=== PATIENT | female | born 1965 | race Caucasian/White ===

== ENCOUNTER 2017-04-19 18:12 | Emergency (ER) | payer BC ==
[~2017-04-19] VITALS: Ht 170.2 cm; Wt 68.0 kg
[~2017-04-19 18:12] MED LIST: ACIDOPHILUS1 EAC2; AMOXICILLIN500 MG PO; BENZONATATE100 MG PO; CALCIUM + D3 E1 EACH; CLONAZEPAM1 MG PO; CYCLOBENZAPRINE10 MG PO; CYMBALTA60 MG PO; DEPLIN-ALGAL O1 EAC1 PO; DEXAMETHASONE4 MG PO; DIVALPROEX SOD500 MG PO; FIORINAL 50-321 EACH PO; FLAXSEED OIL1000 MG; GABAPENTIN100 MG PO; GABAPENTIN300 MG PO; GABAPENTIN400 MG PO; GEODON60 MG PO; GEODON80 MG NG; HYDROXYZINE HCL25 MG PO; LASIX20 MG PO; LEVOTHYROXINE125 MCG PO; LEVOTHYROXINE25 MCG; MAGNESIUM400 MG PO; MELOXICAM15 MG; METOCLOPRAMIDE10 MG PO; MONTELUKAST SOD10 MG PO; NAPROXEN500 MG PO; OMEPRAZOLE20 MG PO; PROMETHAZINE HC25 M1 PO; REMERON30 MG PO; TIZANIDINE HCL4 M1 PO; TOPAMAX50 MG PO; VITAMIN D5000 UNIT PO; ZOFRAN ODT4 MG PO; ZOFRAN8 MG PO; [UNRECOGNIZED DRUG - OTHER]; [UNRECOGNIZED DRUG - OTHER]
[2017-04-19] MEDS ORDERED: TRAMADOL HCL50 MG PO (19:21)
[2017-04-19] MEDS ORDERED: PENICILLIN V P500 MG PO (19:21)
== END 2017-04-19 19:34 | disposition home or self-care (01) ==
LOC: ED 18:12
DX: K08.89 Other specified disorders of teeth and supporting structures (principal); E03.9 Hypothyroidism, unspecified; F17.200 Nicotine dependence, unspecified, uncomplicated; Z90.710 Acquired absence of both cervix and uterus; Z90.49 Acquired absence of other specified parts of digestive tract; Z88.2 Allergy status to sulfonamides; Z88.5 Allergy status to narcotic agent; Z88.8 Allergy status to other drugs, medicaments and biological substances; Z79.899 Other long term (current) drug therapy; Z85.850 Personal history of malignant neoplasm of thyroid
CPT/HCPCS: 99283

== ENCOUNTER 2017-09-02 07:55 | Day surgery (SDC) | payer BC ==
[~2017-09-02] VITALS: Ht 170.2 cm; Wt 72.6 kg
[~2017-09-02 07:55] MED LIST changes: +PENICILLIN V P500 MG PO; +TRAMADOL HCL50 MG PO
[2017-09-02] MEDS ORDERED: OMEGA 3-6-9 CO400 MG PO (08:18)
[2017-09-02] MEDS ORDERED: CALCIUM600 MG PO (08:18)
[2017-09-02] MEDS ORDERED: PROMETHAZINE HC25 MG PR (08:19)
--- NOTE | 2017-09-02 11:38 | NUR ---
09/02/17 1138 Trinity [place] 1125 - PT ARRIVED TO PACU. ATTEMPTING TO PULL OUT NASAL PACKING. NOSE PROTECTED BY RNS. BRIDGE TOLL COLLECTOR GAVE 2 OF VERSED. SUCTION PROVDIED TO REMOVE MUCOUS/BLOOD FROM MOUTH.
--- NOTE | 2017-09-02 13:57 | NUR ---
1235: PATIENT BACK IN DAY SURGERY ROOM FROM PACU. C/O PAIN 8/10 IN NOSE/SINUS AREA. VS CHECKED. GIVEN WATER AND JELLO. IV SITE WNL. SCDs ON. MUSTACHE DRESSING WITH SMALL AMOUNT OF RED DRAINAGE. 1250: MUSTACHE DRESSING CHANGED. TOLERATED JELLO. MEDICATED FOR PAIN WITH 2 TABS OF NORCO. CALL LIGHT WITHIN REACH. MOTHER AT BEDSIDE.
--- NOTE | 2017-09-02 14:03 | NUR ---
1240: VS CHECKED. PATIENT'S PAIN IMPROVED. RATES PAIN 5/10. SLEEPING INTERMITTENTLY. MUSTACHE DRESSING CHANGED. CALL LIGHT WITHIN REACH. MOTHER AND FATHER AT BEDSIDE.
[2017-09-02] MEDS ORDERED: NORCO 5-325 TA1 EACH PO (14:11)
--- NOTE | 2017-09-02 14:41 | NUR ---
PATIENT SLEEPING, AWAKENED FOR VS CHECK. STATES "FEELING BETTER". RATES PAIN /10. CHECKED VS. CHANGED MUSTACHE DRESSING. PATIENT NOT READY TO GET OOB AT THIS TIME. REQUESTS MORE TIME TO REST. IV SITE WNL. PARENTS AT BEDSIDE. CALL LIGHT WITHIN REACH.
--- NOTE | 2017-09-02 15:44 | NUR ---
1515: PATIENT ASSISTED OOB AND TO BATHROOM. GAIT STEADY. VOID WITHOUT DIFFICULTY. GAIT STEADY BACK TO ROOM. PATIENT GETTING DRESSED. 1530: PATIENT DRESSED AND STATES READY TO GO HOME. MUSTACHE DRESSING CHANGED. IV DC'D WNL. TIP INTACT. DRESSING APPLIED. DISCHARGE INSTRUCTIONS GIVEN TO PATIENT AND MOTHER. 1540: PATIENT DISCHARGED TO HOME WITH PARENTS VIA WHEELCHAIR.
--- NOTE | 2017-11-04 14:15 | OR ---
[facility] [address] [place], [place] [address] Signed DATE OF OPERATION: SURGEON: Karan Stevenson MD PREOPERATIVE DIAGNOSES: 1. Posterior neck mass. 2. Septal deformity. 3. Chronic bilateral sinusitis. POSTOPERATIVE DIAGNOSES: 1. Posterior neck mass. 2. Septal deformity. 3. Chronic bilateral sinusitis. PROCEDURES: 1. Excision of posterior neck mass. 2. Septoplasty. 3. Bilateral intranasal ethmoidectomy. ANESTHESIA: General orotracheal, COFFEE URN ATTENDANT, Rey. PREOP HISTORY: Preet is a 52-year-old lady with chronic sinus infections, abnormalities on CAT scan, septal deformity, also a posterior neck mass, soft, consistent with a lipoma. She was taken to the operating room for the above-mentioned procedures. OPERATIVE PROCEDURE AND FINDINGS: After informed consent, the patient was taken to the operating room and placed in supine position where general orotracheal anesthesia was induced. The patient and procedure were verified. The patient received preoperative intranasal oxymetazoline and intravenous Ancef. The patient was rolled to the right posterior neck, shaved exposing the mass which was just to the left of midline just beneath the occiput. The area was sterilely prepped and draped. Lidocaine was injected in a superior inferior direction overlying the mass. This was a soft subcutaneous mass measuring about 3 cm, very consistent with a lipoma. After the lidocaine and with epi injection, an incision was made through skin, subcutaneous tissue, combination of sharp and blunt dissection. I then identified a lipoma about 3-4 cm. This was completely excised down to muscular fascia. The specimen was sent to pathology. The wound was copiously lavaged. Hemostasis was verified. The wound was then closed over a quarter-inch [place] drain with 4-0 interrupted Vicryl subcu and meryl in the skin. Dressing was applied. Electronically Signed By: KARAN STEVENOSN MD 11/04/17 7447 PATIENT NAME: PREET KNIGHT OPERATIVE REPORT DATE OF : 63 REPORT #: [id number] PHYSICIAN: KARAN STEVENSON MD PCP: ZACHARIAH WILSON MD REPORT IS CONFIDENTIAL AND NOT TO BE RELEASED WITHOUT AUTHORIZATION [facility] [address] [place], [place] [address] Signed The patient was repositioned and placed in the supine position. Head elevated. The preop CT was viewed throughout. Intranasal exam with the headlight speculum showed a significant septal deformity, nearly completely obstructive on the left side. 1% lidocaine with epi was injected in bilateral septal mucosa submucoperichondrially. A left hemitransfixion incision was then made and a submucoperichondrial flap elevated on the left side. An incision was made through septal cartilage a centimeter posterior to the mucosal incision and a submucoperichondrial flap elevated on the right. All deviated septal bone and cartilage were then removed with the Blayne. The septum was medialized and airway improved in this manner. The incision was closed with 4-0 interrupted chromic. The ethmoidectomies were then performed directed by CT, viewed throughout. The left side was approached first. The middle turbinate was medialized. Ethmoid bulla taken down with the Blayne. Anterior and posterior ethmoid air cells opened. The abnormal air cells on the CT were posterior ethmoids, very high up near the ethmoid plate. There was a copious amount of inspissated mucus in the sinuses which were opened completely. The middle meatal antrostomy was made with a curve ring curette. The same procedure was performed on the right side. Same findings. Minimal bleeding. The packing was then placed. A Bingham coated with Neosporin in the middle meatal area, both sides, and a trimmed Merocel pack coated with Neosporin in the nasal cavity. The strings were tied anteriorly over a pad. The pharynx was suctioned clear of blood and secretions. The patient was then awakened, extubated, transported to the recovery room in good condition. No complications. BLOOD LOSS: Minimal. SPECIMENS: 1. Left posterior neck mass to pathology. 2. Left sinus contents to pathology. 3. Right sinus contents to pathology. PACKING: Two pieces of Merocel each nostril. No complications. DRAIN: [place] in the posterior neck. Electronically Signed By: KARAN STEVENSON MD 11/04/17 1415 PATIENT NAME: PREET KNIGHT OPERATIVE REPORT DATE OF : 63 REPORT #: [id number] PHYSICIAN: KARAN STEVENSON MD PCP: ZACHARIAH WILSON MD REPORT IS CONFIDENTIAL AND NOT TO BE RELEASED WITHOUT AUTHORIZATION [facility] [address] [place] [id number] Signed Karan Stevenson MD /MODL /[id number] Electronically Signed By: KARAN STEVENSON MD 11/04/17 1415 PATIENT NAME: PREET KNIGHT OPERATIVE REPORT DATE OF : 63 REPORT #: [id number] PHYSICIAN: KARAN STEVENSON MD PCP: ZACHARIAH WILSON MD REPORT IS CONFIDENTIAL AND NOT TO BE RELEASED WITHOUT AUTHORIZATION
== END 2017-09-02 15:40 | disposition home or self-care (01) ==
LOC: DS 07:55 → OPS 07:55 → DS 09:45 → OPS 15:40
PROVIDERS: Otolaryngology
PROC: 09BV4ZZ Excision of Left Ethmoid Sinus, Percutaneous Endoscopic Approach (ICD-10-PCS; 2017-09-02)
PROC: 09BU4ZZ Excision of Right Ethmoid Sinus, Percutaneous Endoscopic Approach (ICD-10-PCS; 2017-09-02)
PROC: 09SM0ZZ Reposition Nasal Septum, Open Approach (ICD-10-PCS; principal; 2017-09-02 09:45)
PROC: 0JB50ZZ Excision of Left Neck Subcutaneous Tissue and Fascia, Open Approach (ICD-10-PCS; 2017-09-02 09:45)
DX: D17.0 Benign lipomatous neoplasm of skin and subcutaneous tissue of head, face and neck (principal); J34.2 Deviated nasal septum; J32.2 Chronic ethmoidal sinusitis; F32.9 Major depressive disorder, single episode, unspecified; G43.909 Migraine, unspecified, not intractable, without status migrainosus; M81.0 Age-related osteoporosis without current pathological fracture; J30.2 Other seasonal allergic rhinitis; Z88.2 Allergy status to sulfonamides; Z85.850 Personal history of malignant neoplasm of thyroid; Z88.5 Allergy status to narcotic agent; Z90.49 Acquired absence of other specified parts of digestive tract; Z79.899 Other long term (current) drug therapy; Z98.890 Other specified postprocedural states
CPT/HCPCS: 00300; J0330; J0690; J2250; J2405; J2704; J2765; J3010; J7120

== ENCOUNTER 2020-12-12 06:35 | Day surgery (SDC) | payer BC ==
[~2020-12-12] VITALS: Ht 172.7 cm; Wt 64.5 kg
[~2020-12-12 06:35] MED LIST changes: +CALCIUM600 MG PO; +LIOTHYRONINE SO5 MCG PO; +NORCO 5-325 TA1 EACH PO; +OMEGA 3-6-9 CO400 MG PO; +PEPCID40 MG PO; +PROMETHAZINE HC25 MG PR; +ZITHROMAX250 MG PO
[2020-12-12] MEDS ORDERED: CYTOMEL25 MCG PO (06:52)
--- NOTE | 2020-12-12 08:23 | NUR ---
12/12/20 0823 Mary Grace Pickard 0820 PATIENT ARRIVES TO PACU SLEEPING, SNORING AT TIMES. AWAKENS WITH REPEATED VERBAL STIMULI, BACK TO SLEEP WHEN NOT STIMULATED. RESP EVEN AND UNLABORED, OXYGEN TURNED OFF ON ARRIVAL TO PACU, 100% ON 2 LITERS VIA NC.
--- NOTE | 2020-12-12 10:56 | OR ---
[facility] [address] [place], [place] [address] Signed DATE OF OPERATION: 12/12/2020 SURGEON: James Redd MD PREOPERATIVE DIAGNOSES: 1. Screening. 2. Chronic diarrhea and constipation. POSTOPERATIVE DIAGNOSIS: Polyp versus suction at 75 cm (mid to distal transverse colon). PROCEDURE: Colonoscopy with hot biopsy at 75 cm and random cold biopsies in right and left colon. ESTIMATED BLOOD LOSS: None. INDICATIONS: Preet is a 55-year-old female, asked to see me mainly for her initial screening colonoscopy. She really has no lower GI complaints. Although, she told the nurses today, she has had chronic lifelong alternating constipation and diarrhea. There is no family history of colon cancer or polyps. She went through an upper endoscopy in 2019 with what sounds like propofol infusion based on her comments. That was unremarkable. She continues to have chronic nausea associated with her anxiety. She generally carries a vomit bag with her. In the office, I gave her a pamphlet on upper endoscopy. We discussed the nature of the test. She understands there is risk including, but not limited to gas bloating, crampy abdominal pain, bleeding, perforation requiring surgery, and missed diagnosis. She also understands the need for IV conscious sedation. She understands that we generally start with Versed and fentanyl. If that would not be enough, she would need monitored anesthesia care with propofol. She had expressed understanding and wished to proceed. PROCEDURE NOTE: Preet was taken into our endoscopy suite and placed in the left lateral decubitus position. She told us about her significant nausea and vomiting. Consequently, we gave her 4 mg IV Zofran and 12.5 mg of IV Phenergan prior to starting. After that, she was given a total of 9 mg of Versed and 150 mcg of fentanyl. There were a couple times during the procedure where she was awake as we advanced the scope. We took a break and gave her more Versed and fentanyl and we used the abdominal compression in order to advance the scope. Fortunately, she is relatively easy to advance the scope. Her prep Electronically Signed By: JAMES REDD MD 12/12/20 1056 PATIENT NAME: PREET KNIGHT OPERATIVE REPORT DATE OF : 63 REPORT #: [id number] PHYSICIAN: JAMES REDD MD PCP: ZACHARIAH WILSON MD REPORT IS CONFIDENTIAL AND NOT TO BE RELEASED WITHOUT AUTHORIZATION [facility] [address] [place], [place] [address] Signed was quite excellent. It did take us a few minutes to get around hepatic flexure and into the cecum itself. She had bilious fluid in the cecum. It took a few minutes to irrigate and suction that out completely. After that, we could easily see her appendiceal orifice and the ileocecal valve. The scope was then slowly withdrawn. We had taken pictures throughout for photodocumentation. We took a random biopsy in the right and left colon because of the history of diarrhea. We have what looks like a suction bite back at 75 cm somewhere in the mid to distal transverse colon. We went ahead and removed with hot biopsy forceps. The rectum itself was unremarkable. No evidence of any diverticulosis. Upon retroflexion of scope, there was no additional pathology noted above the anal canal. After this, the gas was suctioned out and colonoscope removed. Preet tolerated the procedure quite well. RECOMMENDATIONS: I will see Preet back in my office in 7 to 14 days to review her results. James Redd MD ALB/MODL /[id number] cc: MD Zachariah Nolen MD Copies: JAMES REDD MD, RUSSELL BARR MD ~ Electronically Signed By: JAMES REDD MD 12/12/20 1056 PATIENT NAME: PREET KNIGHT OPERATIVE REPORT DATE OF : 63 REPORT #: [id number] PHYSICIAN: JAMES REDD MD PCP: ZACHARIAH WILSON MD REPORT IS CONFIDENTIAL AND NOT TO BE RELEASED WITHOUT AUTHORIZATION
--- NOTE | 2020-12-14 14:46 | PATH ---
[facility] [address] [place], [place] [address] Signed SPECIMEN(S): A RANDOM COLON BIOPSY SPECIMEN(S): B DESCENDING/LEFT COLON POLYP AT 75 CM SPECIMEN SOURCE: A. RANDOM COLON BIOPSY B. DESCENDING/LEFT COLON POLYP AT 75 CM CLINICAL HISTORY: Screening colonoscopy. Diarrhea, constipation. Postop: Polyp vs. suction bite. MICROSCOPIC DESCRIPTION: Histologic sections of all submitted blocks are examined by light microscopy. These findings, together with the gross examination, support the pathologic diagnosis. FINAL PATHOLOGIC DIAGNOSIS: A. Colon, random, biopsy: - Colonic mucosa with no histopathologic abnormality. - Negative for active, chronic, or microscopic colitis. - Negative for dysplasia or malignancy. B. Colon, descending, polyp at 75 cm, polypectomy: - Hyperplastic polyp. - Negative for dysplasia or malignancy. NAL:cml:C2NR GROSS DESCRIPTION: Two specimens are received in two containers, labeled "LB." A. The specimen, labeled "LB, random colon biopsy," is received in formalin and consists of two pineda soft tissue fragments that measure 0.2-0.3 cm in greatest dimension. The specimen is entirely submitted in cassette (A1). B. The specimen, labeled "LB, descending colon polyp at 75 cm," is received in formalin and consists of one pineda soft tissue fragment that measures 0.1 cm in greatest dimension. The specimen is entirely submitted in cassette (B1). JS (under the direct supervision of a pathologist) The Gross Description was prepared using a voice recognition system. The report was reviewed for accuracy; however, sound-alike word errors, addition and/or deletions may occur. If there is any question about this report, please contact Client Services. PATIENT NAME: EVANGELINA KNIGHT PATHOLOGY DATE OF : 63 REPORT #: [id number] PHYSICIAN: HAYLEY PATHOLOGY PCP: ZACHARIAH WILSON MD REPORT IS CONFIDENTIAL AND NOT TO BE RELEASED WITHOUT AUTHORIZATION [facility] [address] [place] [address] Signed PERFORMING LABORATORY: The technical component was performed by [employer] [address] (Meter Inspector: Keeley Lawrence MD; CLIA# [id number]). Professional interpretation was performed by [facility], [address] [address] (CLIA# [id number]). Diagnostician: Eula Morales MD Pathologist Electronically Signed 12/14/2020 Copies: ~ PATIENT NAME: EVANGELINA KNIGHT PATHOLOGY DATE OF : 63 REPORT #: [id number] PHYSICIAN: HAYLEY PATHOLOGY PCP: ZACHARIAH WILSON MD REPORT IS CONFIDENTIAL AND NOT TO BE RELEASED WITHOUT AUTHORIZATION
== END 2020-12-12 09:15 | disposition home or self-care (01) ==
LOC: DS 06:35 → OPS 06:35 → DS 10:30
PROVIDERS: ATTEND Colon & Rectal Surgery
PROC: 0DBE8ZZ Excision of Large Intestine, Via Natural or Artificial Opening Endoscopic (ICD-10-PCS; 2020-12-12)
PROC: 0DBL8ZZ Excision of Transverse Colon, Via Natural or Artificial Opening Endoscopic (ICD-10-PCS; principal; 2020-12-12 07:30)
DX: Z12.11 Encounter for screening for malignant neoplasm of colon (principal); K52.9 Noninfective gastroenteritis and colitis, unspecified; K59.00 Constipation, unspecified; K63.5 Polyp of colon; F41.0 Panic disorder [episodic paroxysmal anxiety]; E89.0 Postprocedural hypothyroidism; E55.9 Vitamin D deficiency, unspecified; F17.200 Nicotine dependence, unspecified, uncomplicated; Z85.850 Personal history of malignant neoplasm of thyroid; Z90.49 Acquired absence of other specified parts of digestive tract; Z88.1 Allergy status to other antibiotic agents; Z88.5 Allergy status to narcotic agent; Z88.2 Allergy status to sulfonamides; Z88.8 Allergy status to other drugs, medicaments and biological substances; Z91.048 Other nonmedicinal substance allergy status
CPT/HCPCS: 99153; G0500; J2250; J2405; J2550; J3010

== ENCOUNTER 2025-03-23 10:02 | Emergency (ER) | payer OTHER ==
[~2025-03-23] VITALS: Ht 172.7 cm; Wt 80.0 kg
[~2025-03-23 10:02] MED LIST changes: +CYTOMEL25 MCG PO; +VITAMIN D-40010 MCG PO; -VITAMIN D5000 UNIT PO
--- OUTSIDE RECORDS SUMMARY | 2025-03-23 10:08 | XMS ---
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 E.DFlaca VISIT COUNT (12 MO.) 1 LAZ[facility]US [facility] TOTAL 1 NOTE: Visits indicate total known visits. ED/UCC VISIT TRACKING (12 MO.) 03/23/2025 10:02 [facility] [place] TYPE: Emergency COMPLAINT: - FALL INPATIENT VISIT TRACKING (12 MO.) No inpatient visits to display in this time frame [email or web address]
[2025-03-23] MEDS ORDERED: HYDROmorphone HCL 1 MG/ML SYR IV SCH (10:15)
[2025-03-23] MEDS ORDERED: HYDROCODON-ACE1 EA10 PO (11:04)
[2025-03-23] MEDS ORDERED: ONDANSETRON ODT4 MG PO (11:04)
[2025-03-23] MEDS ORDERED: CRUTCHES XX (11:06)
[2025-03-23] MEDS ORDERED: HYDROCODONE BIT/ACETAMINOPHEN 5/325 MG 1 TAB HOME.PACK PO PRN (11:45)
[2025-03-23 11:48] VITALS: BP 142/81
[2025-03-24] MEDS ORDERED: PROMETHAZINE HC25 M1 PO (16:04)
[2025-03-24] MEDS ORDERED: PRILOSEC OTC20 MG PO (17:30)
[2025-03-24] MEDS ORDERED: VITAMIN B12500 MCG PO (17:31)
[2025-03-24] MEDS ORDERED: L-METHYLFOLATE7.5 M1 PO (17:31)
== END 2025-03-23 11:49 | disposition home or self-care (01) ==
LOC: ED 10:02
DX: S82.042A Displaced comminuted fracture of left patella, initial encounter for closed fracture (principal); W01.10XA Fall on same level from slipping, tripping and stumbling with subsequent striking against unspecified object, initial encounter; Y92.000 Kitchen of unspecified non-institutional (private) residence as the place of occurrence of the external cause; F17.200 Nicotine dependence, unspecified, uncomplicated
CPT/HCPCS: 73562; 96374; 99283; A9270; J1171

== ENCOUNTER 2025-07-29 14:57 | Emergency (ER) | payer OTHER ==
[~2025-07-29] VITALS: Ht 172.7 cm; Wt 76.9 kg
--- OUTSIDE RECORDS SUMMARY | ~2025-07-29 | XMS | Continuity of Care Document ---
Demographics + + + | Address | [address] | | | [place] [address] | + + + | Preferred Language | Unknown | + + + | Marital Status | | + + + | Oriental Orthodox Affiliation | Unknown | + + + | Race | White | + + + | Ethnic Group | Not or | + + + Author + + + | Author | [facility] | + + + | Organization | [facility] | + + + | Address | [address] | | | [place] [address] | + + + | Phone | | + + + Care Team Providers + + + + | Care Denture Waxer Name | Role | Phone | + + + + Unavailable | Unavailable | + + + + Allergies No information. Encounters No information. Functional Status No information. Immunizations + + + + | date | description | facility | + + + + | (no date) | Influenza, Injectable, | [facility] | | | Quadriv[facility] | [facility] | + + + + Medications + + + + | date | description | facility | + + + + | (no date) | ONDANSETRON HCL | [facility] | | | | [facility] | + + + + | (no date) | DIVALPROEX SODIUM | [facility] | | | | [facility] | + + + + | (no date) | TOPIRAMATE | [facility] | | | | [facility] | + + + + | (no date) | MELOXICAM | [facility] | | | | [facility] | + + + + | (no date) | BENZONATATE | [facility] | | | | [facility] | + + + + | (no date) | CLONAZEPAM | [facility] | | | | [facility] | + + + + | (no date) | DEXAMETHASONE | [facility] | | | | [facility] | + + + + | (no date) | OMEPRAZOLE | [facility] | | | | [facility] | + + + + | (no date) | MONTELUKAST SODIUM | [facility] | | | | [facility] | + + + + | (no date) | FUROSEMIDE | [facility] | | | | [facility] | + + + + | (no date) | MIRTAZAPINE | [facility] | | | | [facility] | + + + + | (no date) | CALCIUM CARBONATE | [facility] | | | | [facility] | + + + + | (no date) | MAGNESIUM OXIDE | [facility] | | | | [facility] | + + + + | (no date) | FLAXSEED | [facility] | | | | [facility] | + + + + | (no date) | ZIPRASIDONE HCL | [facility] | | | | [facility] | + + + + | (no date) | ZIPRASIDONE HCL | [facility] | | | | [facility] | + + + + | (no date) | AMOXICILLIN | [facility] | | | | [facility] | + + + + | (no date) | Cholecalciferol (Vitamin | [facility] | | | D3) | [facility] | + + + + | (no date) | GABAPENTIN | [facility] | | | | [facility] | + + + + | (no date) | GABAPENTIN | [facility] | | | | [facility] | + + + + | (no date) | GABAPENTIN | [facility] | | | | [facility] | + + + + | (no ) | METOCLOPRAMIDE HCL | [facility] | | | | [facility] | + + + + | (no ) | Cyanocobalamin (Vitamin | [facility] | | | B-12) | [facility] | + + + + | (no ) | OMEPRAZOLE MAGNESIUM | [facility] | | | | [facility] | + + + + | (no date) | TIZANIDINE HCL | [facility] | | | | [facility] | + + + + | (no date) | DULOXETINE HCL | [facility] | | | | [facility] | + + + + | (no date) | LACTOBACILLUS ACIDOPHILUS | [facility] | | | | [facility] | + + + + | (no date) | CYCLOBENZAPRINE HCL | [facility] | | | | [facility] | + + + + | (no date) | HYDROCODONE | [facility] | | | BIT/ACETAMINOPHEN | [facility] | + + + + | (no date) | LIOTHYRONINE SODIUM | [facility] | | | | [facility] | + + + + | (no date) | LIOTHYRONINE SODIUM | [facility] | | | | [facility] | + + + + | (no date) | LEVOTHYROXINE SODIUM | [facility] | | | | [facility] | + + + + | (no date) | LEVOTHYROXINE SODIUM | [facility] | | | | [facility] | + + + + | (no date) | PROMETHAZINE HCL | [facility] | | | | [facility] | + + + + | (no date) | PROMETHAZINE HCL | [facility] | | | | [facility] | + + + + | (no date) | hydrOXYzine HCL | [facility] | | | | [facility] | + + + + | (no date) | FEXOFENADINE HCL | [facility] | | | | [facility] | + + + + Problems No information. Procedures No information. Results/Labs No information. Social History +--------+ + + | date | description | facility | +--------+ + + Vital Signs No information."
[~2025-07-29 14:57] MED LIST changes: +ALLEGRA ALLERGY60 MG PO; +ASPIRIN325 MG PO; +CEFUROXIME500 MG PO; +CRUTCHES XX; +DICLOFENAC SODI75 MG PO; +HYDROCODON-ACE1 EA10 PO; +HYDROCODON-ACE1 EA11 PO; +L-METHYLFOLATE7.5 M1 PO; +ONDANSETRON ODT4 MG PO; +PRILOSEC OTC20 MG PO; +SENNA LAX8.6 MG PO; +VITAMIN B12500 MCG PO
--- OUTSIDE RECORDS SUMMARY | 2025-07-29 15:04 | XMS ---
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 [facility]ACHAR[facility] \F\ <UNAVAIL> PHONE: [phone] Delon has no Care Guidelines for this patient. E.Ron VISIT COUNT (12 MO.) 2 LAZARUS Winn TOTAL 2 NOTE: Visits indicate total known visits. ED/UCC VISIT TRACKING (12 MO.) 07/29/2025 14:57 [facility] [place] TYPE: Emergency COMPLAINT: - BLOOD PRESSURE PROBLEM 03/23/2025 10:02 [facility] [place] TYPE: Emergency COMPLAINT: - FALL DIAGNOSES: - Displaced comminuted fracture of left patella, initial encounter for closed fracture - Fall on same level from slipping, tripping and stumbling with subsequent striking against unspecified object, initial encounter - Kitchen of unspecified non-institutional (private) residence as the place of occurrence of the external cause - Nicotine dependence, unspecified, uncomplicated - Pain in left knee INPATIENT VISIT TRACKING (12 MO.) No inpatient visits to display in this time frame [email or web address]
[2025-07-29] MEDS ORDERED: MECLIZINE HCL 25 MG TAB PO ONE (17:15)
[2025-07-29 17:30] LABS: BASOPHILS 0.4 % (0.1-1.2); EOSINOPHILS 1.2 % (0.7-5.8); LYMPHOCYTES 39.5 % (19.3-51.7); MCH 30.2 PG (25.6-32.2); MCHC 32.7 g/dL (32.2-35.5); MCV 92.3 fL (79.4-94.8); MONOCYTES 9.4 % (4.7-12.5); NEUTROPHILS 49.4 % (34.0-71.1); RBC 4.44 M/uL (3.93-5.22)
[2025-07-29 17:51] LABS: AST (SGOT) 19.0 U/L (15-37); GLOMERULAR FILTRATION RATE,EST 75.0 mL/min (>60); PROTEIN, TOTAL 7.5 g/dL (6.4-8.2); UREA NITROGEN 13.0 mg/dL (7-18)
[2025-07-29 18:01] LABS: ALT (SGPT) 17.0 U/L (14-59)
[2025-07-29] MEDS ORDERED: MECLIZINE HCL25 MG PO (22:23)
[2025-07-29] MEDS ORDERED: ASPIRIN81 MG PO (22:23)
[2025-07-29] MEDS ORDERED: LIPITOR20 MG PO (22:23)
[2025-07-29 22:42] VITALS: BP 129/88
== END 2025-07-29 22:44 | disposition home or self-care (01) ==
LOC: ED 14:57
PROVIDERS: Emergency Medicine
DX: H81.10 Benign paroxysmal vertigo, unspecified ear (principal); E03.9 Hypothyroidism, unspecified; G43.909 Migraine, unspecified, not intractable, without status migrainosus; F17.200 Nicotine dependence, unspecified, uncomplicated; Z79.899 Other long term (current) drug therapy; Z88.5 Allergy status to narcotic agent; Z88.2 Allergy status to sulfonamides; Z88.8 Allergy status to other drugs, medicaments and biological substances; Z91.048 Other nonmedicinal substance allergy status
CPT/HCPCS: 36415; 70450; 70496; 70498; 80053; 85025; 99284-25; A9270; Q9967